=== PATIENT | female | born 1965 | race Caucasian/White ===

== ENCOUNTER → 2020-08-06 | Outpatient (CLI) | payer BC, OTHER ==
[~2020-08-06] MED LIST: AIMOVIG AU140 MG/1 M SQ; DITROPAN 5 MG TA5 MG PO; DOCUSATE SODIU250 MG PO; HYDROCODON-ACE1 EAC2 PO; MULTIVITAMIN PATCH; NORFLEX 100 MG100 MG PO; OMEPRAZOLE20 M1 PO; Voltaren Gel 1 % TOP
[2020-08-06 09:31] LABS: HEMOGLOBIN 12.9 gm/dl (12.3-15.3); RED BLOOD COUNT 4.71 M/UL (4.00-5.10); WHITE BLOOD COUNT 5.7 K/UL (4.5-11.0)
== END ==
LOC: OPSV2 08:00
PROVIDERS: Obstetrics & Gynecology
DX: Z01.812 Encounter for preprocedural laboratory examination (principal); N81.9 Female genital prolapse, unspecified
CPT/HCPCS: 81001; 85025

== ENCOUNTER 2020-08-19 07:47 | Observation (INO) | payer BC, OTHER ==
[~2020-08-19] VITALS: Ht 172.7 cm; Wt 91.2 kg
[2020-08-19] MEDS ORDERED: AIMOVIG AU140 MG/1 M SQ (08:58)
[2020-08-19] MEDS ORDERED: OMEPRAZOLE20 M1 PO (08:58)
[2020-08-19] MEDS ORDERED: MULTIVITAMIN PATCH (08:59)
[2020-08-19] MEDS ORDERED: HYDROCODON-ACE1 EAC2 PO (16:29)
[2020-08-19] MEDS ORDERED: DOCUSATE SODIU250 MG PO (16:29)
[2020-08-20 06:23] LABS: HEMOGLOBIN 12.7 gm/dl (12.3-15.3)
[2020-08-20] MEDS ORDERED: DITROPAN 5 MG TA5 MG PO (06:50)
== END 2020-08-20 11:11 | disposition home or self-care (01) ==
LOC: OR 07:47 → OB 15:23 → OR 19:35 → OB 19:36
PROVIDERS: ADMIT Obstetrics & Gynecology
DX: N80.0 Endometriosis of uterus (principal); N83.202 Unspecified ovarian cyst, left side; I10 Essential (primary) hypertension; G47.30 Sleep apnea, unspecified; K21.9 Gastro-esophageal reflux disease without esophagitis; M79.7 Fibromyalgia; Z88.2 Allergy status to sulfonamides; Z83.3 Family history of diabetes mellitus; Z82.49 Family history of ischemic heart disease and other diseases of the circulatory system; Z80.3 Family history of malignant neoplasm of breast; Z80.0 Family history of malignant neoplasm of digestive organs; Z90.49 Acquired absence of other specified parts of digestive tract; Z79.899 Other long term (current) drug therapy
CPT/HCPCS: 36415; 71045; 85014; 85018; 93005; 96374; 96376; C1769; C1771; G0378; J0690; J1100; J1885; J2001; J2250; J2270; J2405; J2550; J2704; J2710; J3010; J7120

== ENCOUNTER 2020-08-27 16:35 | Emergency (ER) | payer SELFPAY ==
[~2020-08-27 16:35] MED LIST changes: -NORFLEX 100 MG100 MG PO; -Voltaren Gel 1 % TOP
[2020-08-27] MEDS ORDERED: Voltaren Gel 1 % TOP (19:56)
[2020-08-27] MEDS ORDERED: NORFLEX 100 MG100 MG PO (19:56)
== END 2020-08-27 20:15 | disposition home or self-care (01) ==
LOC: ER1 16:35
DX: S30.0XXA Contusion of lower back and pelvis, initial encounter (principal); S80.212A Abrasion, left knee, initial encounter; S09.90XA Unspecified injury of head, initial encounter; R10.31 Right lower quadrant pain; M25.551 Pain in right hip; Z88.2 Allergy status to sulfonamides; Z98.1 Arthrodesis status; M79.602 Pain in left arm; W19.XXXA Unspecified fall, initial encounter; Y92.242 Post office as the place of occurrence of the external cause
CPT/HCPCS: 99283